=== PATIENT | female | born 1985 | race Hispanic/Latino ===

== ENCOUNTER 2020-05-24 07:50 | Outpatient (CLI) | payer BC ==
[2020-05-24 14:57] LABS: SARS-CoV-2 MS2 Positive; SARS-CoV-2 N Gene Negative; SARS-CoV-2 S Gene Negative; SARS-CoV-2 by NAA Not Detected (NotDetected); SARS-CoV-2 orf1ab Negative
== END 2020-05-24 07:51 | disposition home or self-care (01) ==
LOC: LABBT 07:50
PROVIDERS: ATTEND Student in an Organized Health Care Education/Training Program
DX: Z01.812 Encounter for preprocedural laboratory examination (principal); Z20.828 Contact with and (suspected) exposure to other viral communicable diseases
CPT/HCPCS: 87635; U0003

== ENCOUNTER 2020-05-26 14:35 | Inpatient (IN) | payer BC ==
[2020-05-26] MEDS ORDERED: Butorphanol Tartrate 1 MG/ML VIAL SLOW IVP PRN (19:51)
[2020-05-26] MEDS ORDERED: Carboprost 250 MCG/ML AMP IM PRN (19:51)
[2020-05-26] MEDS ORDERED: Promethazine HCl 25 MG/ML VIAL IM PRN (19:51)
[2020-05-26] MEDS ORDERED: Docusate 100 MG CAP PO PRN (19:51)
[2020-05-26] MEDS ORDERED: Misoprostol 200 MCG TAB PR PRN (19:51)
[2020-05-26] MEDS ORDERED: Acetaminophen 500 MG TAB PO PRN (19:51)
[2020-05-26] MEDS ORDERED: Lidocaine 1% (PF) 30 ML VIAL SC PRN (19:51)
[2020-05-26] MEDS ORDERED: Ondansetron PF 4 MG/2 ML Vial IVP PRN (19:51)
[2020-05-26] MEDS ORDERED: Methylergonovine 0.2 MG/ML VIAL IM PRN (19:51)
[2020-05-26] MEDS ORDERED: NS / Oxytocin 40 units/1000ml 1,000 ML IV PRN (19:51)
[2020-05-26] MEDS ORDERED: Ibuprofen 800 MG TAB PO PRN (19:51)
[2020-05-26] MEDS ORDERED: hydrALAZINE 20 MG/ML VIAL SLOW IVP PRN (19:51)
--- NOTE | 2020-05-26 20:16 | PDOC.FPROB ---
FMR OB H&P: HPI - History of Present Illness Chief Complaint: IOL History of Present Illness: Pt is a 34 yo @ 39.1 wga by 7.2 wk sono who presents for IOL. She is doing well with no complaints. Endorses good movement, no VB, VD or LOF. has been uncomplicated. She does not want an epidural. Primary Care Physician: GABBY Avelar FMR OB H&P: Current - Care : 3 Para: 1102 Gestational age: 39.1wga Due date: 06/01/20 Dating Criteria: 7.2 wk sono - OB Labs Blood type: A RH: positive Antibody Screen: negative HIV: negative RPR: negative HepBsAg: negative Rubella: immune Gonorrhea: negative Chlamydia: negative Pap Smear: NILM A1c: 5.1% Additional labs: TSH 1.22 FMR OB H&P: History - Past Medical History PMH: obesity, tobacco use prior to - OB History OB History: N/V in first resulted in premature delivery at 32 weeks, baby required 1.5 month stay in NICU alcohol use in 1T before she knew she was - 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: LMP 08/19/19 Menarche 14 yo - Surgical History Sx History: denies - Social History Social History: tobacco use prior to alcohol use in 1T - Family History Family History: mom HLD and DM FMR OB H&P: Medications - Current Home Medications: Medication Instructions Recorded Confirmed Type Vit,Calc76/Iron/Folic 1 tab PO DAILY 11/13/12 05/27/20 History [Prenatabs Rx Tablet] Doxylamine Succinate [Nighttime 1 tab PO PRN PRN 05/26/20 05/26/20 History Sleep-Aid] Allergies/Adverse Reactions: Allergies Allergy/AdvReac Type Severity Reaction Status Date / Time No Known Drug Allergies Allergy Verified 05/26/20 21:59 FMR OB H&P: ROS - Review of Systems General: denies: fever/chills, weight/appetite/sleep changes Eyes: denies: vision changes ENT: denies: nasal congestion Cardiovascular: denies: chest pain, palpitation, edema Respiratory: denies: cough, congestion Gastrointestinal: denies: abdominal pain, nausea, vomiting Genitourinary (Female): denies: dysuria, hematuria, vaginal discharge, vaginal pain, vaginal bleeding, contractions, vaginal pressure Neurologic: denies: numbness, weakness, headache Integumentary: denies: rash Hematologic/Lymphatic: denies: prolonged or excessive bleeding FMR OB H&P: Vital Signs - Maternal Vital signs: BP 119/58 HR 86 - Heart Tones Baseline: 140 Variability: moderate Acceleration: present Deceleration: absent Category: category 1 [place] contractions every: irritability FMR OB H&P: Physical Exam - Physical Exam General: NAD, awake, alert and oriented HEENT: normocephalic and atraumatic, EOMI, conjunctiva clear Neck: supple Heart: RRR, normal S1/S2, no murmurs/rubs/gallops General: CTAB, no respiratory distress, good air movement Abdomen: soft, gravid, non-tender Musculoskeletal: pulses present, FROM in all four extremities Neurological: cranial nerves II through XII intact, sensation to pain,touch and proprioception grossly normal Skin: no rash, good tugor, capillary refill <2 seconds Lymphatic: no unusual bruising or bleeding Psychiatric: intact recent and remote memory, normal mood and affect - Pelvic Exam Vulva: normal hair distribution, appropriate chuy stage SVE: 1/thick/high Levine score: 3 Membranes: intact Presentation: cephalic FMR OB H&P: A/P Disposition: Pt is a 34 yo @ 39.1 wga by 7.2 wk sono who presents for IOL. #IOL -initial cervical exam /high -levine of 3 -will confirm presentation with bedside sono -will start with Cytotec and recheck cervix in 3 hours -continuous monitoring -patient does not desire epidural Anticipate Discussion: Date/Time: 05/26/202013 This H&P was discussed with Dr. Everett and Dr. Aguero who agree with the above documentation and plan. Addendum - Attending - Attending Attestation Date/Time: 05/27/20 0242 I personally evaluated the patient and discussed the management with Dr. Alonso. I agree with the History, Examination, Assessment and Plan documented above with any addition or exceptions noted below.
[2020-05-26] MEDS: Lactated Ringer's 1,000 ML IV SCH (20:49)
[2020-05-26 21:29] LABS: Hemoglobin 11.4 g/dL (12.0-16.0); Mean Corpuscular HGB CONC 33.9 g/dL (32.0-36.0); Mean Corpuscular Hemoglobin 31.9 pg (27.0-31.0); Mean Platelet Volume 10.6 fL (7.4-10.4); Platelet Count 185 thou/uL (130-400); RBC Distribution Width 12.1 % (11.5-14.5); Red Blood Cell (RBC) Count 3.56 mill/uL (4.20-5.40)
[2020-05-26] MEDS: Misoprostol 100 MCG TAB VAG SCH (21:53)
[2020-05-26 22:02] LABS: Syphilis Antibody Nonreactive (Nonreactive); Syphilis Antibody Index 0.02 S/CO (<1.00 Non-Reactive)
[2020-05-26 22:18] VITALS: BMI 41.6
[2020-05-26 23:09] LABS: HBSAg Index 0.19 S/CO (0-0.99); Hep B Surf Ag Non-Reactive S/CO (NonReactive)
[2020-05-27] MEDS: Misoprostol 100 MCG TAB VAG SCH ×2 (01:24→06:55)
--- NOTE | 2020-05-27 01:50 | PDOC.LDPN ---
Labor & Delivery Progress Note - Subjective Subjective: comfortable - Objective Vital signs reviewed and normal: yes General: NAD, resting Uterine fundus: non tender Dilation: 2 Effacement: 50% (40) Station: -2 FHT: category 1, variability present Drain contractions every: irritability Plan: continue plan of care -: Mcelroy of 5 with cervical check of /-2 Place cytotec #2 will recheck in 3 hours continuous monitoring baby confirmed cephalic with bedside sono Anticipate Plan discussed with Dr Aguero and he agrees
--- NOTE | 2020-05-27 04:37 | PDOC.LDPN ---
Labor & Delivery Progress Note - Subjective Subjective: comfortable, other (some vaginal bleeding when up to bathroom) - Objective General: NAD, resting, breathing through contractions Uterine fundus: non tender Dilation: 5 Effacement: 50% Station: -2 FHT: category 1 [place] contractions every: irritability Plan: continue plan of care, pitocin for augmentation -: Making good change Mcelroy of 8 Will start Pit Recheck in 2 hours Continuous monitoring Anticipate Plan discussed with Dr Aguero
[2020-05-27] MEDS ORDERED: NS w/ Oxytocin 30 units 500 ML IVPB SCH (04:45)
[2020-05-27] MEDS ORDERED: Lidocaine 1% (PF) 30 ML VIAL ONE (05:37)
[2020-05-27] MEDS: NS w/ Oxytocin 30 units 500 ML IVPB SCH ×2 (05:50→06:50)
[2020-05-27] MEDS: Lactated Ringer's 1,000 ML IV SCH (06:56)
[2020-05-27] MEDS ORDERED: Milk Of Magnesia 30 ML UDCUP PO PRN (07:33)
[2020-05-27] MEDS ORDERED: Adacel (T-DAP) 0.5 ML SYRINGE IM ONE (07:33)
[2020-05-27] MEDS ORDERED: Misoprostol 200 MCG TAB VAG PRN (07:33)
[2020-05-27] MEDS ORDERED: hydrALAZINE 20 MG/ML VIAL SLOW IVP PRN (07:33)
[2020-05-27] MEDS ORDERED: Bisacodyl 10 MG SUPP PR PRN (07:33)
[2020-05-27] MEDS ORDERED: Ondansetron PF 4 MG/2 ML Vial IVP PRN (07:33)
[2020-05-27] MEDS ORDERED: Lanolin Ointment 7 GM TUBE TOP PRN (07:33)
[2020-05-27] MEDS ORDERED: NS / Oxytocin 40 units/1000ml 1,000 ML IV SCH (07:33)
[2020-05-27] MEDS: Ferrous Sulfate 325 MG TAB PO SCH (09:54)
[2020-05-27] MEDS: Prenatal Vitamin 1 TAB PO SCH (10:03)
[2020-05-27] MEDS: Docusate Calcium (SURFAK) 240 MG CAP PO SCH ×2 (10:04→21:09)
[2020-05-27] MEDS: Acetaminophen 500 MG TAB PO PRN ×2 (10:32→21:09)
[2020-05-27] MEDS ORDERED: Sodium Chloride 0.9% 10 ML ONE (13:00)
[2020-05-27] MEDS: Ibuprofen 800 MG TAB PO SCH (15:43)
[2020-05-28] MEDS: Ibuprofen 800 MG TAB PO SCH ×2 (00:24→08:29)
--- NOTE | 2020-05-28 05:50 | DN ---
DATE OF PROCEDURE: 05/27/2020 DELIVERING PHYSICIAN: Citlaly Alonso MD, PGY1 ATTENDING: Marquis Aguero MD PROCEDURE: Spontaneous vaginal delivery. ANESTHESIA: Local for repair. PREOPERATIVE DIAGNOSES: 1. Term intrauterine , in labor. 2. History of tobacco use prior to and alcohol use in the first trimester before she knew she was , obesity. POSTOPERATIVE DIAGNOSES: 1. Term intrauterine , delivered. 2. History of tobacco use prior to and alcohol use in the first trimester before she knew she was , obesity. INDICATIONS: A 34-year-old female, G3, P1-1-0-2 at 39 and 2, presents to L and D for induction of labor. DELIVERY NOTE: This is a 34-year-old female, G3, P 1-1-0-2 at 39 and 2 weeks. She delivered a viable female infant at 05:48, following an uneventful antepartum course. A vigorous female was delivered over the perineum in the occipitoanterior position. Anterior shoulder and then remainder of the body was delivered. No nuchal cord. The baby was put immediately on mom's chest and stimulated. Cord was clamped and cut; however, placenta delivered spontaneously quickly after baby. The cord blood was collected after placenta was cut from baby and delayed cord clamping was not performed, secondary to quick delivery of placenta. Placenta did deliver intact with a three-vessel cord noted. There were clots of blood upon inspection of the placenta, which is suspicious for an abruption. Fundal massage was performed, and fundus was firm. The cervix and vagina were inspected and a laceration was noted, specifically, a secondary perineal laceration. It was repaired with 3-0 chromic in the usual fashion with good approximation with local for repair. Hemostasis was noted after repair. went to nursery in good condition for routine care. Apgars were 8 and 9 at one and 5 minutes respectively. The patient tolerated the delivery well and went to after routine recovery care. Dr. Aguero was present and teaching throughout the whole delivery. Job ID: [id number] [facility]
--- NOTE | 2020-05-28 06:35 | PDOC.PP ---
Post Progress Note Post Day #: 1 Subjective: Pt resting comfortably. Pain controlled. Tolerating diet, ambulating, voiding and passing flatus. Minimal lochia. Bottle feeding. Would like to go home today. PO intake tolerated: yes Flatus: yes Ambulation: yes Vital Signs (12 hours) Temp Pulse Resp BP Pulse Ox 05/28/20 04:30 97.9 F 74 18 112/55 L 05/28/20 00:20 98.4 F 73 18 111/59 L 05/27/20 21:00 98.5 F 74 18 107/69 96 Weight Weight 117.027 kg - Physical Examination General: NAD Cardiovascular: no m/r/g, RRR Respiratory: clear to auscultation bilaterally, non-labored breathing Abdominal: + bowel sounds, no distention, appropriately TTP Neurological: no gross focal deficits Psychiatric: A&Ox3, normal affect Result Diagrams: 05/26/20 21:05 Additional Labs: Post Labs Hep Bs Antigen Non-Reactive S/CO (NonReactive) 05/26/20 21:05 Blood Type A POSITIVE 05/26/20 21:05 - Assessment/Plan PP day #1, term -GBS negative -pain controlled on tylenol and ibuprofen, will send home with rx for ibuprofen -tolerating diet, ambulating, voiding, having flatus -bottle feeding -f/u @ 2weeks with TAMP -pelvic rest 6 weeks Dispo: Stable, likely discharge home today pending baby's bili Addendum - Attending - Attending Attestation Date/Time: 05/29/20 0806 I personally evaluated the patient and discussed the management with Dr. Juarez on 05/28/2020 I agree with the History, Examination, Assessment and Plan documented above with any addition or exceptions noted below - Patient without complaints. Afebrile VSS A/P: 1) PPD#1 s/p - doing well. Plan to d/c home today.
[2020-05-28] MEDS: Ferrous Sulfate 325 MG TAB PO SCH ×2 (07:51→07:53)
[2020-05-28 08:13] VITALS: BP 99/56; TEMP 97.5
[2020-05-28] MEDS: Prenatal Vitamin 1 TAB PO SCH (08:29)
[2020-05-28] MEDS: Docusate Calcium (SURFAK) 240 MG CAP PO SCH (08:29)
== END 2020-05-28 10:40 | disposition home or self-care (01) | DRG 807 ==
LOC: L&D 19:25 → 3SW 05-27 09:08
PROVIDERS: ADMIT Emergency Medicine; ATTEND Emergency Medicine
PROC: 10E0XZZ Delivery of Products of Conception, External Approach (ICD-10-PCS; principal; 2020-05-27)
PROC: 0KQM0ZZ Repair Perineum Muscle, Open Approach (ICD-10-PCS; 2020-05-27)
PROC: 3E0P7VZ Introduction of Hormone into Female Reproductive, Via Natural or Artificial Opening (ICD-10-PCS; 2020-05-27)
DX: O99.214 Obesity complicating childbirth (principal); Z37.0 Single live birth; E66.9 Obesity, unspecified; Z3A.39 39 weeks gestation of pregnancy; O70.1 Second degree perineal laceration during delivery; Z01.812 Encounter for preprocedural laboratory examination; Z20.828 Contact with and (suspected) exposure to other viral communicable diseases
CPT/HCPCS: 36415; 85027; 86780; 86850; 86900; 86901; 87340; 87635; 88307; J2590; U0003

== ENCOUNTER 2021-04-30 14:35 | Emergency (ER) | payer BC ==
[2021-04-30 15:08] LABS: #Eosinphils 0.1 thou/uL (0.0-0.7); #Lymphocytes 1.5 thou/uL (1.20-3.40); #Monocytes 0.6 thou/uL (0.11-0.59); %Basophils 0.3 % (0.0-1.0); %Eosinophils 1.3 % (0.0-10.0); %Lymphocytes 15.9 % (21.0-51.0); %Monocytes 6.7 % (0.0-10.0); %Neutrophils 75.8 % (42.0-75.0); Hemoglobin 14.3 g/dL (12.0-16.0); Mean Corpuscular HGB CONC 33.7 g/dL (32.0-36.0); Mean Corpuscular Volume 97.7 fL (78.0-98.0); Mean Platelet Volume 9.4 fL (7.4-10.4); Platelet Count 232 thou/uL (130-400); RBC Distribution Width 11.8 % (11.5-14.5); Red Blood Cell (RBC) Count 4.33 mill/uL (4.20-5.40); White Blood Cell (WBC) Count 9.3 thou/uL (4.8-10.8)
[2021-04-30 15:28] LABS: ALT (SGPT) 16 U/L (8-55); AST (SGOT) 19 U/L (5-34); Albumin 4.3 g/dL (3.5-5.0); Alkaline Phosphatase 75 U/L (40-110); Anion Gap 14 mmol/L (10-20); BUN (Urea Nitrogen) 15 mg/dL (7.0-18.7); Bilirubin, Total 0.4 mg/dL (0.2-1.2); Calc. Creatinine Clearance 0 mL/min (70-130); Calcium 9.4 mg/dL (7.8-10.44); Carbon Dioxide 20 mmol/L (22-29); Chloride 108 mmol/L (98-107); Globulin 3.6 g/dL (2.4-3.5); Glucose 109 mg/dL (70-105); Lipase 31 U/L (8-78); Potassium 4.4 mmol/L (3.5-5.1); Protein, Total 7.9 g/dL (6.0-8.3); Sodium 138 mmol/L (136-145)
== END 2021-04-30 17:03 | disposition home or self-care (01) ==
LOC: ERS 14:35
DX: R07.89 Other chest pain (principal)
CPT/HCPCS: 36415; 71045; 80053; 83690; 84484; 85025; 93005